=== PATIENT | female | born 1940 | race Caucasian/White ===

== ENCOUNTER 2019-04-22 17:42 | Inpatient (IN) | payer MEDICARE, OTHER ==
[~2019-04-22] VITALS: Ht 167.6 cm; Wt 77.6 kg
[2019-04-22] MEDS ORDERED: SODIUM CHLORIDE FLUSH 10ML SYR IVF ONE (18:00)
[2019-04-22] MEDS ORDERED: SODIUM CHLORIDE 0.9% 1,000ML IVBOLUS ONE ×2 (18:00)
[2019-04-22] MEDS ORDERED: DIGO125T PO (18:07)
[2019-04-22] MEDS ORDERED: ATOR20TA37 PO (18:07)
[2019-04-22] MEDS ORDERED: DULO30CA2 PO (18:07)
[2019-04-22] MEDS ORDERED: IRBE150T25 PO (18:07)
[2019-04-22] MEDS ORDERED: FURO20TA3 PO (18:07)
[2019-04-22] MEDS ORDERED: METF500T17 PO (18:07)
[2019-04-22] MEDS ORDERED: DILT30TA33 PO (18:07)
[2019-04-22] MEDS ORDERED: PREG100C PO (18:07)
--- NOTE | 2019-04-22 18:10 | NUR ---
EMS GAVE 600ML NS, 1L NS IMMEDIATELY. 2ND LARGE BORE PIV STARTED FROM WHICH LABS INCLUSING LACTATE/PROCAL OBTAINED, LAB AT BEDSIDE AND 2ND SET OF CULTURES OBTAINED AFTER 2ND CULTURE 1GM ROCEPHIN ADMINISTERED WELL 650MG OF APAP 86/47, 91 PROVIDER AT BEDSIDE
--- NOTE | 2019-04-22 18:12 | NUR ---
600ML NS CORE DRILLER HELPER
[2019-04-22] MEDS ORDERED: CEFTRIAXONE PMX 1GM/50ML 50 ML ONE (18:25)
[2019-04-22] MEDS ORDERED: ACETAMINOPHEN 500 MG TABLET ONE (18:25)
[2019-04-22] MEDS ORDERED: ACETAMINOPHEN 325 MG TABLET ONE (18:29)
[2019-04-22] MEDS ORDERED: ACETAMINOPHEN 325 MG TABLET PO ONE (18:30)
[2019-04-22] MEDS ORDERED: CEFTRIAXONE PMX 1GM/50ML 50 ML IV ONE (18:30)
--- NOTE | 2019-04-22 18:38 | NUR ---
2ND LITER OF NS FROM EMERGENCY SERVICES PROFESSIONAL ADMINISTERED PER EMAR. EMERGENCY SERVICES PROFESSIONAL COMMUNICATED TO PROVIDER POTENTIAL NEED FOR PRESSORS PATIENT WITH SWOLLEN LEGS AND B/P ONLY IMPROVED TO 86/47 AFTER 1600ML. ER PROVIDER WOULD LIKE FURTHER FLUID (2ND LITER) AND WILL RE-ADDRESS. WILL CONTINUE TO MONITOR
[2019-04-22 18:41] LABS: MEAN CORPUSCULAR HEMOGLOBIN 29.6 pg (27.0-34.8); MEAN CORPUSCULAR HGB CONC 32.8 g/dL (32.4-35.8); MEAN CORPUSCULAR VOLUME 90.2 fL (80-100); MEAN PLATELET VOLUME 8.3 fL (7.4-10.4); PLATELET COUNT 324 x10^3/uL (130-400); RED BLOOD COUNT 3.89 x10^6/uL (3.82-5.3); RED CELL DISTRIBUTION WIDTH 14.6 % (9.6-15.2)
--- NOTE | 2019-04-22 18:45 | NUR ---
ABX HELD UNTIL STRAIGHT CATH COMPLETED, STRAIGHT CATH COMPLETED, UA COLLECTED AND WALKED TO LAB. BP 88/42, MD AWARE, IVF ADMINISTERED PER ORDER, PATIENT LAYING IN GURNEY, A+OX4. BLOOD CULTURES DRAWN X 2 PRIOR TO ABX.
[2019-04-22 18:52] LABS: ALANINE AMINOTRANSFERASE 25 U/L (12-78); ALBUMIN 2.4 g/dL (3.4-5.0); CALCIUM 8.4 mg/dL (8.5-10.1); CHLORIDE 100 mmol/L (98-107); CREATININE 2.63 mg/dL (0.55-1.02)
[2019-04-22 18:55] LABS: ALKALINE PHOSPHATASE 64 U/L (45-117); ANION GAP 14 mmol/L (5-15); BILIRUBIN,TOTAL 0.4 mg/dL (0.2-1.0); TOTAL PROTEIN 6.3 g/dL (6.4-8.2)
[2019-04-22 19:01] LABS: MD YES
--- NOTE | 2019-04-22 19:01 | NUR ---
ER PROVIDER TO BEDSIDE-PLAN TO PLACE CENTRAL LINE->PRESSORS PATIENT REMAINS HYPOTENSIVE DESPITE ROUGHLY 2LNS THUS FAR (2ND HOSPITAL ADMINITERED NS BOLUS 50% DONE) TRANSFERRED TO TRAUMA 4 REPORT TO AMISH MERRILL
[2019-04-22 19:04] LABS: <PLATELET ESTIMATE> ADEQUATE; <PLT MORPHOLOGY> NORMAL PLT MORPH; <RBC MORPHOLOGY> NORMAL; BAND#(MANUAL) 1.29 x10^3/uL; BANDS%(MANUAL) 5 % (0-7); LYMPHS% (MANUAL) 7 % (22-44); MONOS#(MANUAL) 1.29 x10^3/uL (0.3-2.7); MONOS% (MANUAL) 5 % (2-9); SEG#(MANUAL) 21.33 x10^3/uL (1.8-6.8); SEGS% (MANUAL) 83 % (42-75)
[2019-04-22] MEDS ORDERED: NOREPINEPHRINE 4 MG in SODIUM CHLORIDE 0.9% 246 ML IV PRN ×2 (19:19→22:36)
[2019-04-22 19:20] LABS: CULTURE INDICATED? YES; MICROSCOPIC INDICATED
--- NOTE | 2019-04-22 20:57 | NUR ---
CENTRAL LINE WAS PLACED BP WAS STABILIZED WITH LEVOPHED CAME BACK FROM HEAD AND CHEST CT. BLADDER SCANNER WAS DONE >500CC OF URINE IN BLADDER PURWICK WAS PLACED WAITING FOR PT'S URINATION
[2019-04-22] MEDS ORDERED: VANCOMYCIN 1,700 MG in SODIUM CHLORIDE 0.9% 250 ML IV ONE (21:00)
[2019-04-22] MEDS ORDERED: SODIUM CHLORIDE 0.9% 1,000 ML IV ONE (21:00)
[2019-04-22] MEDS ORDERED: VANCOMYCIN PER PHARMACY MC PRN ×2 (21:00→23:00)
--- NOTE | 2019-04-22 21:34 | NUR ---
STRAIGHT CATH WAS IN FOR EVACUATION PT'S URINE FROM BLADDER
--- NOTE | 2019-04-22 21:41 | NUR ---
STRAIGHT CATH URINE 750CC OUT
[2019-04-22] MEDS ORDERED: PHARMACY MAY ADJ FOR RENAL FX MC PRN (23:00)
[2019-04-22] MEDS ORDERED: PHARMACOKINETIC MONITORING MC PRN (23:00)
--- NOTE | 2019-04-22 23:01 | NUR ---
GIVEN REPORT TO YOSVANY JENKINS CCU PT WILL BE TRNASFERRED TO CCU AT BED SIDE [phone]
[2019-04-22 23:54] VITALS: BP 106/55
[2019-04-23] MEDS: SODIUM CHLORIDE 0.9% 1,000 ML IV SCH ×4 (00:14→23:59)
[2019-04-23] MEDS: HEPARIN 5,000 UNITS/ML, 1ML SQ SCH ×3 (00:14→18:03)
[2019-04-23 04:49] LABS: MEAN CORPUSCULAR HEMOGLOBIN 29.3 pg (27.0-34.8); MEAN CORPUSCULAR HGB CONC 32.7 g/dL (32.4-35.8); MEAN CORPUSCULAR VOLUME 89.6 fL (80-100); MEAN PLATELET VOLUME 8.6 fL (7.4-10.4); PLATELET COUNT 294 x10^3/uL (130-400); RED BLOOD COUNT 4.04 x10^6/uL (3.82-5.3); RED CELL DISTRIBUTION WIDTH 14.3 % (9.6-15.2)
[2019-04-23 04:56] LABS: ANION GAP 10 mmol/L (5-15); CALCIUM 7.9 mg/dL (8.5-10.1); CHLORIDE 107 mmol/L (98-107)
[2019-04-23 05:12] LABS: CREATININE 2.14 mg/dL (0.55-1.02)
[2019-04-23 05:44] LABS: MD YES
[2019-04-23 05:46] LABS: <PLATELET ESTIMATE> ADEQUATE; <RBC MORPHOLOGY> NORMAL; BAND#(MANUAL) 0.78 x10^3/uL; BANDS%(MANUAL) 3 % (0-7); LYMPH#(MANUAL) 0.78 x10^3/uL (1-3.4); LYMPHS% (MANUAL) 3 % (22-44); MONOS#(MANUAL) 1.83 x10^3/uL (0.3-2.7); MONOS% (MANUAL) 7 % (2-9); SEG#(MANUAL) 22.71 x10^3/uL (1.8-6.8); SEGS% (MANUAL) 87 % (42-75)
[2019-04-23 05:47] LABS: <PLT MORPHOLOGY> NORMAL PLT MORPH
[2019-04-23] MEDS: CEFTRIAXONE PMX 1GM/50ML 50 ML IV SCH ×2 (06:12→18:03)
[2019-04-23] MEDS ORDERED: DIGOXIN 0.125 MG TABLET PO SCH (09:00)
[2019-04-23] MEDS: DULOXETINE 30 MG CAPSULE.DR PO SCH (09:41)
[2019-04-23 14:14] VITALS: BP 110/76
[2019-04-23] MEDS ORDERED: ACETAMINOPHEN 325 MG TABLET PO PRN (17:30)
[2019-04-23 18:58] VITALS: BP 107/72
[2019-04-23] MEDS: ATORVASTATIN 20 MG TABLET PO SCH (20:02)
[2019-04-24] MEDS: HEPARIN 5,000 UNITS/ML, 1ML SQ SCH ×3 (01:44→18:09)
[2019-04-24 02:07] VITALS: BP 100/61
[2019-04-24 05:55] LABS: MEAN CORPUSCULAR HEMOGLOBIN 29.7 pg (27.0-34.8); MEAN CORPUSCULAR VOLUME 90.1 fL (80-100); MEAN PLATELET VOLUME 8.5 fL (7.4-10.4); PLATELET COUNT 297 x10^3/uL (130-400); RED BLOOD COUNT 3.87 x10^6/uL (3.82-5.3); RED CELL DISTRIBUTION WIDTH 14.7 % (9.6-15.2)
[2019-04-24 06:09] LABS: ANION GAP 10 mmol/L (5-15); CALCIUM 8.4 mg/dL (8.5-10.1); CHLORIDE 113 mmol/L (98-107)
[2019-04-24 06:13] LABS: BASOPHILS # (AUTO) 0.09 x10^3/uL (0-0.1); BASOPHILS % (AUTO) 0 % (0-1); EOSINOPHILS # (AUTO) 0.15 x10^3/uL (0-0.4); EOSINOPHILS % (AUTO) 1 % (1-7); LYMPHOCYTES # (AUTO) 0.75 x10^3/uL (1-3.4); LYMPHOCYTES % (AUTO) 4 % (22-44); MD SCAN; MONOCYTES % (AUTO) 5 % (2-9); NEUTROPHILS # (AUTO) 18.83 x10^3/uL (1.8-6.8); NEUTROPHILS % (AUTO) 90 % (42-75)
[2019-04-24] MEDS: CEFTRIAXONE PMX 1GM/50ML 50 ML IV SCH ×2 (06:13→18:09)
[2019-04-24 06:26] LABS: CREATININE 1.55 mg/dL (0.55-1.02)
[2019-04-24 07:13] VITALS: BP 124/76
[2019-04-24] MEDS: DULOXETINE 30 MG CAPSULE.DR PO SCH (10:06)
[2019-04-24 14:39] VITALS: BP 134/79
[2019-04-24 19:10] VITALS: BP 132/83
[2019-04-24] MEDS ORDERED: VANCOMYCIN 1,700 MG in SODIUM CHLORIDE 0.9% 250 ML IV SCH (21:00)
[2019-04-24] MEDS: SODIUM CHLORIDE 0.9% 1,000 ML IV SCH (21:55)
[2019-04-24] MEDS: ATORVASTATIN 20 MG TABLET PO SCH (21:58)
[2019-04-25] MEDS: HEPARIN 5,000 UNITS/ML, 1ML SQ SCH ×2 (01:25→08:46)
[2019-04-25 01:27] VITALS: BP 119/72
[2019-04-25 06:25] LABS: ANION GAP 9 mmol/L (5-15); CALCIUM 8.5 mg/dL (8.5-10.1); CHLORIDE 116 mmol/L (98-107); CREATININE 1.13 mg/dL (0.55-1.02)
[2019-04-25] MEDS: CEFTRIAXONE PMX 1GM/50ML 50 ML IV SCH (06:29)
[2019-04-25 06:43] LABS: MEAN CORPUSCULAR HEMOGLOBIN 29.6 pg (27.0-34.8); MEAN CORPUSCULAR HGB CONC 32.9 g/dL (32.4-35.8); MEAN PLATELET VOLUME 8.5 fL (7.4-10.4); PLATELET COUNT 276 x10^3/uL (130-400); RED BLOOD COUNT 3.54 x10^6/uL (3.82-5.3); RED CELL DISTRIBUTION WIDTH 14.3 % (9.6-15.2)
[2019-04-25 07:05] LABS: BASOPHILS # (AUTO) 0.02 x10^3/uL (0-0.1); BASOPHILS % (AUTO) 0 % (0-1); EOSINOPHILS # (AUTO) 0.46 x10^3/uL (0-0.4); EOSINOPHILS % (AUTO) 3 % (1-7); LYMPHOCYTES # (AUTO) 0.86 x10^3/uL (1-3.4); LYMPHOCYTES % (AUTO) 6 % (22-44); MD SCAN; MONOCYTES # (AUTO) 0.99 x10^3/uL (0.2-0.8); MONOCYTES % (AUTO) 7 % (2-9); NEUTROPHILS # (AUTO) 11.83 x10^3/uL (1.8-6.8); NEUTROPHILS % (AUTO) 84 % (42-75)
[2019-04-25 08:00] VITALS: BP 112/59
[2019-04-25] MEDS: DULOXETINE 30 MG CAPSULE.DR PO SCH (08:45)
[2019-04-25] MEDS: SODIUM CHLORIDE 0.9% 1,000 ML IV SCH (08:46)
[2019-04-25] MEDS ORDERED: DIGOXIN 0.125 MG TABLET PO SCH (09:00)
[2019-04-25 13:17] VITALS: BP 117/54
[2019-04-25] MEDS ORDERED: CEFD300C37 PO (14:26)
== END 2019-04-25 14:35 | disposition home or self-care (01) | DRG 871 ==
LOC: ED 19:41 → EDIP 20:49 → CCU 23:30 → 4WST 04-23 12:34 → DCLOUNGE 04-25 14:25
PROVIDERS: ADMIT Family Medicine; ATTEND Family Medicine
PROC: 0T9B70Z Drainage of Bladder with Drainage Device, Via Natural or Artificial Opening (ICD-10-PCS; principal; 2019-04-22)
PROC: 02HV33Z Insertion of Infusion Device into Superior Vena Cava, Percutaneous Approach (ICD-10-PCS; 2019-04-22)
PROC: B548ZZA Ultrasonography of Superior Vena Cava, Guidance (ICD-10-PCS; 2019-04-22)
DX: A41.9 Sepsis, unspecified organism (principal); G93.41 Metabolic encephalopathy; R65.21 Severe sepsis with septic shock; N17.9 Acute kidney failure, unspecified; N12 Tubulo-interstitial nephritis, not specified as acute or chronic; E11.9 Type 2 diabetes mellitus without complications; I10 Essential (primary) hypertension; I48.91 Unspecified atrial fibrillation; M19.90 Unspecified osteoarthritis, unspecified site; Z79.84 Long term (current) use of oral hypoglycemic drugs; Z87.440 Personal history of urinary (tract) infections
CPT/HCPCS: 36415; 71045; 71250; 74176; 80048; 80053; 80162; 81001; 82962; 83605; 84145; 85025; 87040; 87077; 87081; 87086; 87186; 87389; 93005; 96361; 96365; 96366; 96367; G0378; J0696; J1644; J3370; J7030; J7050